=== PATIENT | female | born 1975 | race Asian ===

== ENCOUNTER → 2018-10-01 | Outpatient (CLI) | payer OTHER | END | disposition home or self-care (01) | LOC: MI 11:32 → MA 13:00 | PROC: BR30YZZ Magnetic Resonance Imaging (MRI) of Cervical Spine using Other Contrast (ICD-10-PCS; principal; 2018-10-01) | PROC: BH02ZZZ Plain Radiography of Bilateral Breasts (ICD-10-PCS; 2018-10-01) | DX: M54.12 Radiculopathy, cervical region (principal); Z12.31 Encounter for screening mammogram for malignant neoplasm of breast | CPT/HCPCS: 77067; A9577 ==

== ENCOUNTER → 2018-11-11 | Outpatient (CLI) | payer OTHER | LOC: MA 12:56 ==

== ENCOUNTER → 2019-06-16 | Day surgery (SDC) | payer OTHER ==
[~2019-06-16] VITALS: Ht 165.1 cm; Wt 61.7 kg
[2019-06-16 08:18] VITALS: BP 140/82
[2019-06-16 10:39] VITALS: BP 120/83
== END | disposition home or self-care (01) ==
LOC: DS 05-12 08:00 → OR 05-12 08:00 → DS 07:39
DX: G89.4 Chronic pain syndrome (principal); M47.12 Other spondylosis with myelopathy, cervical region; M47.22 Other spondylosis with radiculopathy, cervical region; M50.00 Cervical disc disorder with myelopathy, unspecified cervical region; I10 Essential (primary) hypertension; Z79.899 Other long term (current) drug therapy
CPT/HCPCS: 77003; J1100; J2001; J2250; J3010; J3301; J3490; J7040; Q0092; Q9967